=== PATIENT | male | born 1965 | race Caucasian/White ===

== ENCOUNTER → 2019-09-13 | Outpatient (CLI) | payer OTHER ==
--- NOTE | 2019-09-13 16:01 | DIREP ---
PROCEDURE:MR SHOULDER WITHOUT CONTRAST [Left] TECHNIQUE:Multi-planar MR images of the left shoulder were obtained without contrast. COMPARISON:[facility] and Sp[facility] CT, MR, MRI UPPER EXTREMITY LEFT JOINT W/O, 11/18/2012, 10:30 AM. INDICATIONS:LEFT SHOULDER PAIN FINDINGS: ROTATOR CUFF:Complete supraspinatus tendon tear/retear with evidence of previous rotator cuff repair, compared to prior, tendon has completely torn. Infraspinatus partially torn with full-thickness tear anteriorly and tendinosis of posterior fibers. Teres minor tendon intact. Moderate grade partial-thickness and full-thickness tearing of the superior 3rd of the subscapularis tendon insertion on the lesser trochanter. BICEPS TENDON:Biceps tendon appears completely torn along its intracapsular course with split tear and fraying of biceps tendon along the bicipital groove. MUSCLES:Severe subscapularis muscle atrophy. Moderate supraspinatus and subscapularis muscle atrophy. LIGAMENTS:Superior and middle glenohumeral ligaments not well assessed without arthrographic contrast. Inferior glenohumeral ligament appears intact. LABRUM:Labrum circumferentially macerated and chronically torn. AC JOINT:AC joint maintained. GLENOHUMERAL JT:Moderate glenohumeral chondral thinning and full-thickness fissuring. Moderate glenohumeral joint effusion with synovitis. ACROMION:Type 2 acromion, no os acromiale. Acromiohumeral interval narrowed at 2 mm with superior drift of the humeral head abutting the undersurface of the acromion. BONES:Irregularity of the humeral head articular surface superiorly with areas of subchondral irregularity, abnormal signal and collapse consistent with avascular necrosis. Multiple suture anchor seen in the greater tuberosity consistent with previous rotator cuff repair. OTHER:Small joint effusion. Synovitis. CONCLUSION: 1. Complete supraspinatus tendon tear/retear which has developed since prior. 2. Partial-thickness infraspinatus tendon tear, new since prior. 3. Focal full-thickness superior subscapularis tendon tear, new since prior. 4. Intracapsular biceps tendon disruption, new since prior. 5. Humeral head avascular necrosis, new since prior. Dictated by: Alvarado Steven M.D. on 09/13/2019 at 03:48 PM
== END | disposition home or self-care (01) ==
LOC: RAD 12:56
PROVIDERS: ATTEND Orthopaedic Surgery
DX: S46.912A Strain of unspecified muscle, fascia and tendon at shoulder and upper arm level, left arm, initial encounter (principal); X58.XXXA Exposure to other specified factors, initial encounter; Y93.89 Activity, other specified; Y92.89 Other specified places as the place of occurrence of the external cause; Y99.8 Other external cause status
CPT/HCPCS: 73221

== ENCOUNTER → 2020-12-05 | Outpatient (CLI) | payer OTHER ==
[~2020-12-05] MED LIST: LEXISCAN IV ONE
--- NOTE | 2020-12-05 20:16 | PCM.ECHO ---
APPROVED REPORT EXAM: Comprehensive 2D, Doppler, and color-flow Echocardiogram. Patient Location: OUT-PATIENT Rhythm: NSR Indications Chest Pain 2D Dimensions LVOT Diameter 2.39 (1.8-2.4cm) LVEF(%) 54.18 (>50%) M-Mode Dimensions RVDd 1.70 (2.1-3.2cm) Left Atrium(MM) 4.95 (2.5-4.0cm) IVSd 1.55 (0.7-1.1cm) Aortic Root 2.65 (2.2-3.7cm) LVDd 4.65 (4.0-5.6cm) Aortic Cusp Exc 2.00 (1.5-2.0cm) PWd 1.40 (0.7-1.1cm) MV EPSS 0.52 (<0.5cm) IVSs 2.00 cm FS (%) 29.90 % LVDs 3.25 (2.0-3.8cm) ESV(Teich) 42.88 ml PWs 1.60 cm LVEF(%) 57.10 (>50%) Volumes Biplane 2D LV Volumes Biplane 2D LA Volumes LVEDv A4C 201.07 mL LA ESV Index LVESv A4C 92.13 mL Aortic Valve AoV Peak Reggie. 1.45 m/s AoV VTI 29.85 cm AO Peak GR. 8.60 mmHg AO Mean GR. 4.30 mmHg LVOT VTI 29.57 cm LVOT Peak Reggie. 1.22 m/s GENE(VTI)/BSA 4.45 cm2/m2 GENE (VTI) 4.45 cm2 Mitral Valve MV E Velocity 1.00m/s MR Peak Gr. 83.75mmHg MV A Velocity 1.10m/s TDI Lateral E' P. V 0.11m/s Medial E' P. V 0.07m/s Pulmonary Valve PV Peak Velocity 0.85m/s PV Peak Grad. 3.15mmHg RVOT VTI 18.59cm Tricuspid Valve TR P. Velocity 1.25m/s RAP ESTIMATE 10.00mmHg TR Peak Gr. 6.52mmHg RVSP 16.52mmHg LEFT VENTRICLE The left ventricle is normal size. The left ventricular systolic function is normal. The left ventricular ejection fraction is within the normal range. There is normal left ventricular wall thickness. There is normal LV segmental wall motion. There is no ventricular septal defect visualized. No left ventricle thrombus noted on this study. LVEF is 50-55%. RIGHT VENTRICLE The right ventricle is normal size. The right ventricular systolic function is normal. There is normal right ventricular wall thickness. ATRIA The left atrium size is normal. The right atrium size is normal. The interatrial septum is intact with no evidence for an atrial septal defect. AORTIC VALVE The aortic valve is normal in structure. There is no aortic valvular stenosis. No aortic regurgitation is present. MITRAL VALVE The mitral valve is normal in structure. There is no mitral valve stenosis. Mild to moderate mitral regurgitation. There is no evidence of mitral valve vegetations. TRICUSPID VALVE The tricuspid valve is normal in structure. There is no tricuspid valve stenosis. Moderate tricuspid regurgitation. There is no tricuspid valve vegetations. PULMONIC VALVE Pulmonic valve is not well visualized. There is no pulmonic valvular stenosis. There is no pulmonic valvular regurgitation. GREAT VESSELS The aortic root is normal in size. Pulmonary artery is not well visualized. Aortic arch is not well visualized. The IVC is normal in size and collapses >50% with inspiration. PERICARDIUM There is no pericardial effusion. Other Information Study Quality: Fair <Conclusion> The left ventricular systolic function is normal. LVEF is 50-55%. Mild to moderate mitral regurgitation. Moderate tricuspid regurgitation. Electronically signed by : JAMESON ROD. 12/05/2020 20:16:22
--- NOTE | 2020-12-05 22:15 | STRESS ---
DATE OF SERVICE: 12/05/2020 DICTATOR NAME: JAMESON BRUNAFeliberto CARDIAC STRESS TEST INDICATION: Chest pain. FINDINGS: Baseline EKG shows normal sinus rhythm with premature atrial complexes and couplets. Poor R-wave progression is also visualized. Stress EKG goes shows normal sinus rhythm, unchanged from baseline. At the end of recovery, EKG shows normal sinus rhythm, unchanged from baseline. Baseline heart rate 73 beats per minute and gurdeep to 74 beats per minute during stress. At the end of recovery, the heart rate was 82 beats per minute. Baseline blood pressure is 141/87 and remained the same during stress. At the end of recovery, the blood pressure was 144/88. Blood pressure and heart rate were appropriate for stress. There were no significant symptoms noted during stress. There were no arrhythmias noted during stress. EKG portion of stress test is negative for myocardial ischemia. Nuclear images were obtained with a rest dose of 10.62 mCi technetium-99 sestamibi, and a stress dose of 34.5 mCi technetium 99 sestamibi. Nuclear imaging shows a large area of reversible perfusion defect involving the inferior wall and suggestive of myocardial ischemia. There is also a moderate sized reversible perfusion defect involving the apical wall also suggestive of myocardial ischemia. There is no evidence of myocardial infarction. Left ventricular ejection fraction of 42%. EDV is 108 mL, ESV 63 mL. The left ventricle is moderately dilated. Severe inferior wall hypokinesis is visualized on voltage gated images. Global hypokinesis of the left ventricle is also visualized on voltage gated images. TID is 1.4. There is no evidence of diaphragmatic attenuation artifact. IMPRESSION: 1. There is a large size reversible perfusion defect involving the inferior wall and suggestive of myocardial ischemia. 2. There is a moderate sized reversible perfusion defect involving the apical wall also suggestive of myocardial ischemia. 3. There is no evidence of myocardial infarction. 4. Left ventricular ejection fraction of 42%. 5. Moderately dilated left ventricle. 6. Global hypokinesis of the left ventricle. 7. This is an abnormal study, recommend left heart catheterization. Meggan GUZMÁN D.O. DR: MATT TID: [id number] RECEIPT: [id number]
== END | disposition home or self-care (01) ==
LOC: RAD 10:37
PROVIDERS: ATTEND Internal Medicine Interventional Cardiology
DX: I08.1 Rheumatic disorders of both mitral and tricuspid valves (principal); R00.2 Palpitations; R07.9 Chest pain, unspecified; Q25.49 Other congenital malformations of aorta
CPT/HCPCS: 78452; 93017; 93306; A9500; J2785

== ENCOUNTER → 2020-12-19 | Day surgery (SDC) | payer OTHER ==
[~2020-12-19] VITALS: Ht 177.8 cm; Wt 95.3 kg
[2020-12-19] VITALS (10 sets, daily range): BP systolic 145–162; BP diastolic 73–96
[~2020-12-19] MED LIST changes: +ALEN70TA76 PO; +AMLO2.5T5 PO; +ARFO15VI NEB; +BUDE0.5A NEB; +CETI10TA18 PO; +CLON0.1T PO; +CYCL10TA2 PO; +DOXA2TAB2 PO; +EZET10TA20 PO; +FURO40TA4 PO; +GABA600T7 PO; +HYDR-3105 PO; +LEVA15HF4 IH; -LEXISCAN IV ONE; +METO25TA4 PO; +NS 1000ML 1,000 ML IV ONE; +PANT40TA6 PO; +POLY2500 PO; +PRED20TA PO; +ROFL500T PO; +ROPI0.5T4 PO; +ROSU20TA2 PO; +SUBLIMAZE ONE; +THEO300C PO; +TRAM50TA PO; +TRAZ-163 PO; +VERSED ONE; +XYLOCAINE ONE
--- NOTE | 2020-12-19 20:30 | [facility] ---
DATE OF SERVICE: 12/19/2020 DICTATOR NAME: JAMESON ROD DO INDICATIONS: Abnormal cardiac stress test. This is a 55-year-old male who was initially seen in the outpatient setting following chest discomfort. He underwent cardiac ischemic workup, which was noted to be abnormal. He was then set up for left heart catheterization after informed consents were obtained. PROCEDURES PERFORMED: 1. Selective coronary angiography. 2. Left ventriculography. 3. Hemostasis established using a 6-Georgian Mynx control. DESCRIPTION OF PROCEDURE: Access was obtained, using a 4 Georgian micropuncture kit to cannulate the right common femoral artery. The 4-Georgian sheath was then upsized to a 6-Georgian regular short sheath. Diagnostic angiography was carried out using the Stephen left catheter to engage the left main. The left main was noted to be angiographically normal. It trifurcates into left anterior descending artery, left circumflex artery and the ramus intermedius branch. The LAD is noted to have mild luminal irregularities. It runs in the interventricular groove reaching the apex to form a type 2 LAD. It gives off a large caliber diagonal branch that is noted to have mild luminal irregularities. The left circumflex artery is noted to be nondominant and with mild luminal irregularities. It gives off a large caliber obtuse marginal 1 branch that is noted to have mild luminal irregularities. The ramus intermedius branch is a large caliber vessel with mild luminal irregularities. The Stephen left catheter was then exchanged for a Stehpen right catheter, which was used to cross the aortic valve into the left ventricle. Left ventriculography was performed. LVEF was noted to be 60%. LVEDP was noted to be 12. Upon pullback of the Stephen right catheter, there was no gradient across the aortic valve. The Stephen right catheter was then used to engage the RCA. The RCA was noted to be dominant and with mild luminal irregularities. It bifurcates distally to an RPL and RPDA branch, both noted to have mild luminal irregularities. The Stephen right catheter was then taken out and hemostasis was established using a 6-Georgian Mynx control. The patient left the manager lab in stable condition. There were no complications. IMPRESSION: 1. Nonobstructive coronary artery disease. 2. Selective coronary angiography. 3. Left ventriculography. 4. LVEF of 60%. 5. LVEDP of 12. 6. Hemostasis established using a 6-Georgian Mynx control. RECOMMENDATIONS: No coronary intervention is necessary at this time. Lifestyle modification factors have been strongly advised. The patient will be discharged home today to follow up with me in the office in 2 to 3 weeks. Meggan GUZMÁN D.O. DR: KAMILLE TID: [id number] RECEIPT: [id number]
== END | disposition home or self-care (01) ==
LOC: CCL 11:46
PROVIDERS: ATTEND Internal Medicine Interventional Cardiology
DX: I25.10 Atherosclerotic heart disease of native coronary artery without angina pectoris (principal); I11.0 Hypertensive heart disease with heart failure; I50.40 Unspecified combined systolic (congestive) and diastolic (congestive) heart failure; E78.2 Mixed hyperlipidemia; J44.9 Chronic obstructive pulmonary disease, unspecified; K21.9 Gastro-esophageal reflux disease without esophagitis; F41.9 Anxiety disorder, unspecified; E66.9 Obesity, unspecified; Z68.30 Body mass index [BMI] 30.0-30.9, adult; Z98.890 Other specified postprocedural states; Z79.899 Other long term (current) drug therapy
CPT/HCPCS: 93458; 99152; C1769; C1894 ×2; J1644; J2250; J3010; Q9967

== ENCOUNTER 2020-12-22 10:35 | Emergency (ER) | payer OTHER ==
[~2020-12-22] VITALS: Ht 177.8 cm; Wt 104.3 kg
[~2020-12-22 10:35] MED LIST changes: -NS 1000ML 1,000 ML IV ONE; -SUBLIMAZE ONE; -VERSED ONE; -XYLOCAINE ONE
[2020-12-22 10:43] VITALS: BP 137/88
[2020-12-22] MEDS ORDERED: TORADOL IM STA (10:45)
[2020-12-22] MEDS ORDERED: NORFLEX IM STA (10:45)
--- NOTE | 2020-12-22 10:47 | ER.PDOC ---
General Chief Complaint: Extremities Stated Complaint: HIP PAIN Time seen by MD: 10:46 Source: patient Exam Limitations: no limitations History of Present Illness Initial Comments Right hip pain for 1 week. Patient denies injury. Pain is worse with movement. Nothing makes it better. Timing/Duration: week (one) Quality: moderate, constant, sharp Method of Injury/Prior Injury: unknown Location: hip (R) Symptoms prior to fall: denies symptoms Other Injuries: none Allergies: Coded Allergies: No Known Allergies (Unverified , 12/16/20) Past Medical History Medical History: COPD Family History Significant Family History: no pertinent family hx Social History Smoking: greater than 1 pack/day Alcohol Use: none Drug Use: none Review of Systems Constitutional: no symptoms reported EENTM: no symptoms reported Respiratory: no symptoms reported Cardiovascular: no symptoms reported Gastrointestinal: no symptoms reported Musculoskeletal: see HPI All Other Systems: Reviewed and Negative Physical Exam General Appearance: No Apparent Distress, WD/WN EENT: eyes nml inspection, nml ENT inspection, pharynx nml Neck: nml inspection, non-tender Cardiovascular/Respiratory: Regular Rate, Rhythm, No M/R/G, Normal Peripheral Pulses, No JVD, Normal Breath Sounds, No Respiratory Distress Abdominal: Non-Tender, No Organomegaly, No Hernia Back: Normal Inspection, No CVA Tenderness Extremities: Pain With Movement (right hip), Tenderness Neuro/Psych: Alert, first breaker 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 nml/symmetrical, mood/effect nml, No Motor/Sensory Deficits, Relexes nml Skin: Normal Color, Warm/Dry Results/Orders Results/Orders Orders - ORIANA LEWIS MD Xr Hip Rt 2v W/Pelvis (12/22/20 10:42) Ketorolac Tromethamine (Toradol) (12/22/20 10:45) Orphenadrine Citrate (Norflex) (12/22/20 10:45) Ketorolac Tromethamine (Toradol) (12/22/20 10:52) Orphenadrine Citrate (Norflex) (12/22/20 10:52) Ct Pelvis Wo Iv Contrast (12/22/20 11:23) Vital Signs Date Time Temp Pulse Resp B/P (MAP) Pulse Ox O2 Delivery O2 Flow Rate FiO2 12/22/20 10:50 98.5 84 20 137/82 (100) 91 Room Air 12/22/20 10:43 98.5 84 20 91 12/22/20 10:43 98.5 84 20 Administered Medications Medications (Trade) Dose Ordered Sig/Lashonda Route PRN Reason Start Time Stop Time Status Last Admin Dose Admin Ketorolac Tromethamine (Toradol) 60 mg STAT STAT IM 12/22/20 10:45 12/22/20 10:46 DC 12/22/20 11:03 60 MG Orphenadrine Citrate (Norflex) 60 mg STAT STAT IM 12/22/20 10:45 12/22/20 10:46 DC 12/22/20 11:[address] pelvis: Bilateral femoral head AVN without collapse. Degenerative changes lumbosacral junction. CT pelvis: Bilateral femoral head AVN without collapse. Degenerative changes lumbosacral junction. Spoke with Dr. Mtz will give patient option of either being admitted for pain control or go home and follow-up with me in the office tomorrow. He decided the latter. ER DEPARTURE Departure Time of Disposition: 12:39 Disposition: 01 HOME / SELF CARE / HOMELESS Impression: Primary Impression: Hip pain, right Additional Impression: Avascular necrosis of bone of right hip Condition: Stable Referrals: MELLISA POOL (PCP) PRIMARY CARE PROVIDER Additional Instructions: Tramadol Prednisone Use crutches and no weightbearing with the right leg Follow-up with Dr. Mtz tomorrow, call for appointment time Return to ED if worsening or concerns Duration or Time Spent with Pa: 20 min Justification of Admit/Observ Is this patient coming directl: Yes *Level of Care/Services Provid: ER Admit Criteria Met: NO Justification Content JUSTIFICATION FOR ADMISSION Instructions 1. Open link in [employer] Browser. [email or web address] 2. Copy and paste data needed to meet the Admit Criteria. 3. Modify and document the needful data to meet the Admit Criteria. Problem Qualifiers ORIANA LEWIS MD December 22, 2020 10:47
[2020-12-22 10:50] VITALS: BP 137/82
[2020-12-22] MEDS ORDERED: NORFLEX ONE (10:52)
[2020-12-22] MEDS ORDERED: TORADOL ONE (10:52)
--- NOTE | 2020-12-22 11:19 | DIREP ---
PROCEDURE:XRAY HIP MIN 2VW-RT COMPARISON:None. INDICATIONS:pain FINDINGS: BONES:Faint region of sclerosis and lucency superior aspect of the right femoral head without cortical collapse or acute changes. No acute deformities are seen. Possible subcortical cyst or osteonecrosis. If the patient has dedicated right hip pain additional evaluation with MRI or CT can be obtained. The remainder the osseous structures appear normal. JOINTS:Normal. SOFT TISSUES:Normal. OTHER:No additional findings. CONCLUSION: 1. Faint rounded region of sclerosis with central lucency in the superior aspect of the right femoral head without cortical collapse or acute changes. Possible subcortical cyst or osteonecrosis/AVN. If additional clinical evaluation is warranted CT or MRI may provide better characterization. Dictated by: Buster Jasso MD on 12/22/2020 at 11:13 AM
[2020-12-22 11:45] VITALS: BP 150/88
--- NOTE | 2020-12-22 12:14 | DIREP ---
PROCEDURE:CT PELVIS W/O COMPARISON:None. INDICATIONS:Right hip pain TECHNIQUE:Axial images were created through the pelvis without intravenous contrast material. No oral contrast was administered. Sagittal and coronal reconstructions were performed from source images. FINDINGS: AORTA/VASCULAR:Excessive calcified atherosclerosis. RETROPERITONEUM:Normal. No mass or adenopathy. BOWEL/MESENTERY:Diverticulosis of the descending colon and sigmoid colon without acute diverticulitis. ABDOMINAL WALL:Normal. No mass or hernia. PELVIC ORGANS:Normal. No visible mass. Pelvic organs appropriate for patient age. BONES:Geographic areas of abnormal density in the subarticular bilateral femoral heads consistent with avascular necrosis, without collapse or subchondral fracture. This involves approximately 75% of the right femoral head and slightly less on the left. Small bilateral acetabular osteophytes. Endplate degenerative changes L5-S1. OTHER:Negative. CONCLUSION:Bilateral femoral head AVN without collapse. Degenerative changes lumbosacral junction. Dictated by: Armando Morris M.D. on 12/22/2020 at 12:07 PM
[2020-12-22 12:45] VITALS: BP 128/85
== END 2020-12-22 12:45 ==
LOC: ER 10:35
DX: M25.551 Pain in right hip (principal); M87.9 Osteonecrosis, unspecified; F17.210 Nicotine dependence, cigarettes, uncomplicated; J44.9 Chronic obstructive pulmonary disease, unspecified; Z79.1 Long term (current) use of non-steroidal anti-inflammatories (NSAID)
CPT/HCPCS: 72192; 73502; 96372; 99284; J1885; J2360

== ENCOUNTER → 2021-01-10 | Outpatient (CLI) | payer OTHER ==
--- NOTE | 2021-01-10 16:59 | DIREP ---
PROCEDURE: MRI JOINT LOWER EXTREMITY-BILAT W/O COMPARISON:[facility], CT, CT PELVIS W/O, 12/22/2020, 11:27 AM. [facility], CR, XRAY HIP MIN 2VW-RT, 12/22/2020, 10:45 AM. TECHNIQUE:Multiplanar, multisequence images of the pelvis and bilateral hips were obtained without IV contrast. INDICATIONS:RIGHT AND LEFT HIP PAIN M87.051 M87.052 FINDINGS: BONES/JOINTS:Serpiginous increased T2/STIR and decreased T1 signal is seen within the anterior/superior aspects of the bilateral femoral heads (right greater than left), consistent with avascular necrosis. Minimal subchondral collapse is seen involving the anterior/superior right femoral head.Associated mild edema is seen within the anterior aspect of the right femoral neck. No subchondral collapse is seen involving the left femoral head. Marrow signal is otherwise normal. No fracture, contusion, or suspicious marrow lesion. Small right and trace left hip effusions. No intra-articular loose body. Mild bilateral hip osteoarthritis. Mild degenerative changes are partially visualized involving the inferior sacroiliac joints. Lower lumbar degenerative changes are incompletely visualized on coronal images. SOFT TISSUES:Minimal edema overlying the lateral aspects of the bilateral greater trochanters, consistent with minimal trochanteric bursitis/gluteal tendinopathy. Visualized musculature and soft tissues are otherwise unremarkable. OTHER:Moderate sigmoid diverticulosis. No inflammatory changes or fluid are seen to suggest diverticulitis. The prostate normal in size. Intrapelvic structures are otherwise unremarkable. No pelvic free fluid or adenopathy. Incidental note is made of small bilateral hydroceles. CONCLUSION: 1. Findings consistent with bilateral femoral head avascular necrosis, right greater than left. There is minimal subchondral collapse involving the anterior/superior with mild associated marrow edema in the anterior right femoral neck. 2. Small right and trace left hip effusions. 3. 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 4. Additional findings, as above Dictated by: Tuan Conde MD on 01/10/2021 at 04:41 PM
== END | disposition home or self-care (01) ==
LOC: RAD 12:07
PROVIDERS: ATTEND Orthopaedic Surgery
DX: M16.0 Bilateral primary osteoarthritis of hip (principal); K57.30 Diverticulosis of large intestine without perforation or abscess without bleeding; N43.2 Other hydrocele; M25.452 Effusion, left hip; M25.451 Effusion, right hip; M53.3 Sacrococcygeal disorders, not elsewhere classified
CPT/HCPCS: 73721

== ENCOUNTER → 2021-09-01 | Outpatient (CLI) | payer OTHER ==
[~2021-09-01] MED LIST changes: +CYCL10TA19 PO; -CYCL10TA2 PO; +LEXISCAN IV ONE
--- NOTE | 2021-09-02 03:05 | STRESS ---
DATE OF SERVICE: 09/01/2021 DICTATOR NAME: JAMESON MARCEL CARDIAC STRESS TEST INDICATION: Chest pain. FINDINGS: Baseline EKG shows normal sinus rhythm with nonspecific ST-T wave changes. Stress EKG shows normal sinus rhythm, unchanged from baseline. At the end of recovery, EKG shows normal sinus rhythm, unchanged from baseline. Baseline blood pressure is 143/77 and remained the same during stress. At the end of recovery, the blood pressure was 149/78. Baseline heart rate was 75 beats per minute and gurdeep to 76 beats per minute during stress. At the end of recovery, the heart rate was 82 beats per minute. Blood pressure and heart rate were appropriate for stress. There were no significant symptoms noted during stress. There were no arrhythmias noted during stress. EKG portion of stress test is negative for myocardial ischemia. Nuclear images were obtained with a rest dose of 10.80 mCi technetium-99 sestamibi, and a stress dose of 32.5 mCi technetium 99 sestamibi. Nuclear images reveal a large area of periinfarct ischemia involving the inferior wall. Left ventricular ejection fraction is 58%. EDV is 102 mL, ESV is 43 mL. The left ventricle is normal in size. Gated motion images show normal wall motion across all segments of the left ventricle. TID is 1.47. There was no evidence of diaphragmatic attenuation artifact. IMPRESSION: 1. There is a large area of periinfarct ischemia involving the inferior wall. 2. This is an abnormal study. Recommend left heart catheterization. Meggan GUZMÁN D.O. DR: RUSSELL TID: [id number] RECEIPT: [id number]
== END | disposition home or self-care (01) ==
LOC: RAD 10:41
PROVIDERS: ATTEND Internal Medicine Interventional Cardiology
DX: R07.9 Chest pain, unspecified (principal)
CPT/HCPCS: 78452; 93017; A9500; J2785

== ENCOUNTER → 2021-09-17 | Day surgery (SDC) | payer OTHER ==
[~2021-09-17] VITALS: Ht 177.8 cm; Wt 103.0 kg
[2021-09-17] VITALS (10 sets, daily range): BP systolic 139–178; BP diastolic 66–89
[~2021-09-17] MED LIST changes: +ACET500T73 PO; +ALBU1.25 NEB; +ASPI-667 PO; +AZIT250T14 PO; +BUDE10.7 IH; +CYAN-26 PO; +GABA100C7 PO; +GUAI600T31 PO; +IPRA0.2S34 NEB; +IPRA4AER IH; -LEXISCAN IV ONE; +MORPHINE SULFATE ONE; +NS 1000ML 1,000 ML IV SCH; +NS 1000ML 1,000 ML ONE; +POTA-148 PO; +SUBLIMAZE ONE; +UMEC62.5 IH; +VERSED ONE; +VITA25006 PO; +XYLOCAINE ONE
--- NOTE | 2021-09-17 21:36 | [facility] ---
DATE OF SERVICE: 09/17/2021 DICTATOR NAME: JAMESON ROD DO INDICATIONS: Abnormal cardiac ischemic workup. This is a 56-year-old male who was seen in the outpatient setting where he underwent cardiac ischemic workup that was noted to be abnormal. He was then set up for left heart catheterization after informed consent were obtained, PROCEDURES PERFORMED: 1. Selective coronary angiography. 2. Left ventriculography. 3. Hemostasis established using a 6-New Zealander Angio-Seal. DESCRIPTION OF PROCEDURE: Access was obtained using a 4-[place] Zealander micropuncture kit to cannulate the right common femoral artery. The 4-[place] Zealander sheath was then upsized to a 6-[place] Zealander regular short sheath. Diagnostic angiography was then carried out using the Stephen left catheter to engage the left main. The left main was noted to be angiographically normal. It trifurcates into left anterior descending artery, ramus intermedius branch and the left circumflex artery. The left anterior descending artery has a widely patent stent in the proximal segment. It runs in the interventricular groove to the apex to form a type 2 LAD. It tapers into a 0.5-1 mm vessel distally. It gives rise to a large caliber diagonal branch that is noted to have mild luminal irregularities. The left circumflex artery is noted to be nondominant with mild luminal irregularities. The ramus intermedius branch is a large caliber vessel with mild luminal irregularities. The Stephen left catheter was then exchanged for a Stephen right catheter, which was used to engage the RCA. RCA angiography revealed a dominant RCA with mild luminal irregularities. The RCA bifurcates distally to a right posterior descending artery and a right posterolateral artery. Both vessels are noted to have mild luminal irregularities. The Stephen right catheter was then exchanged for a pigtail catheter, which was used to cross the aortic valve into the left ventricle. Left ventriculography was performed. LVEF was noted to be 65%. LVEDP was noted to be 11. Upon pullback of the pigtail catheter, there was no gradient across the aortic valve. The pigtail catheter was then taken out and hemostasis was established using a 6-[place] Zealander Angio-Seal. 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 There were no complications. IMPRESSION: 1. Nonobstructive coronary artery disease. 2. Selective coronary angiography. 3. Left ventriculography. 4. Left ventricular ejection fraction of 65%. 5. Left ventricular end-diastolic pressure of 11. 6. Hemostasis established using a 6-[place] Zealander Angio-Seal. RECOMMENDATIONS: No coronary intervention is necessary at this time. Lifestyle modification factors have been strongly advised. The patient will be discharged home today to follow up with me in the office in 2-3 weeks. Meggan GUZMÁN D.O. DR: KA/AZI TID: [id number] RECEIPT: [id number]
== END | disposition home or self-care (01) ==
LOC: CCL 07:13
PROVIDERS: ATTEND Internal Medicine Interventional Cardiology
DX: I25.10 Atherosclerotic heart disease of native coronary artery without angina pectoris (principal); I11.0 Hypertensive heart disease with heart failure; J44.9 Chronic obstructive pulmonary disease, unspecified; I50.40 Unspecified combined systolic (congestive) and diastolic (congestive) heart failure; M54.9 Dorsalgia, unspecified; E78.2 Mixed hyperlipidemia; K21.9 Gastro-esophageal reflux disease without esophagitis; F41.9 Anxiety disorder, unspecified; G60.9 Hereditary and idiopathic neuropathy, unspecified; Z95.5 Presence of coronary angioplasty implant and graft; Z79.01 Long term (current) use of anticoagulants; Z79.899 Other long term (current) drug therapy
CPT/HCPCS: 93458; 99152; C1769; C1894 ×2; J1644; J2250; J2270; J3010; J7030; Q9967

== ENCOUNTER → 2021-12-15 | Outpatient (CLI) | payer OTHER ==
[~2021-12-15] MED LIST changes: -MORPHINE SULFATE ONE; -NS 1000ML 1,000 ML IV SCH; -NS 1000ML 1,000 ML ONE; -SUBLIMAZE ONE; -VERSED ONE; -XYLOCAINE ONE
--- NOTE | 2021-12-16 16:18 | PRP ---
DATE OF PROCEDURE: 12/15/2021 DICTATOR NAME: JAMESON ROD DO ARTERIAL DOPPLER ULTRASOUND OF THE BILATERAL LOWER EXTREMITIES INDICATION: Intermittent claudication. RIGHT LOWER EXTREMITY: The right common femoral artery has a peak systolic velocity of 245 cm per second with triphasic waveforms visualized. The right profunda femoris artery has a peak systolic velocity of 198 cm per second with biphasic waveforms seen. The right superficial femoral artery has a peak systolic velocity of cm per second with triphasic waveforms seen. The right popliteal artery has a peak systolic velocity of 119 cm per second with triphasic waveforms visualized. The right posterior tibial artery has a peak systolic velocity of 105 cm per second with monophasic waveforms visualized. The right peroneal artery has a peak systolic velocity of 142 cm per second with triphasic waveforms seen. The right anterior tibial artery has triphasic waveforms with a peak systolic velocity of 95 cm per second. The right lower extremity ankle-brachial index is 1.0. LEFT LOWER EXTREMITY: The left common femoral artery has a peak systolic velocity of 161 cm per second with triphasic waveforms seen. The left profunda femoris artery has a peak systolic velocity of 116.8 cm per second with biphasic waveforms seen. The left superficial femoral artery has triphasic waveforms with a peak systolic velocity of 110 cm per second. The left popliteal artery has triphasic waveforms with a peak systolic velocity of 103 cm per second. The left posterior tibial artery has triphasic waveforms with a peak systolic velocity of 121.6 cm per second. Left peroneal artery has triphasic waveforms with a peak systolic velocity of 104 cm per second. The left anterior tibial artery has triphasic waveforms with a peak systolic velocity of 80 cm per second. The left lower extremity ankle-brachial index is 0.9. IMPRESSION: 1. There is no evidence of hemodynamically significant stenosis in the right lower extremity. 2. There is no evidence of hemodynamically significant stenosis in the left lower extremity. 3. Bilateral ABIs are within normal limits. Meggan GUZMÁN D.O. DR: JUANITO STOVER: [id number] RECEIPT: [id number] [facility]
== END | disposition home or self-care (01) ==
LOC: RAD 12:41
PROVIDERS: ATTEND Nurse Practitioner Family
DX: I70.213 Atherosclerosis of native arteries of extremities with intermittent claudication, bilateral legs (principal)
CPT/HCPCS: 93922; 93925

== ENCOUNTER → 2021-12-25 | Outpatient (CLI) | payer OTHER ==
--- NOTE | 2021-12-28 04:38 | PRP ---
DATE OF PROCEDURE: 12/25/2021 DICTATOR NAME: JAMESON ROD DO VENOUS MAPPING ULTRASOUND INDICATION: Chronic venous insufficiency. Right lower extremity: The right greater saphenous vein measures 10 mm in its maximum diameter. Significant reflux is noted in the right GSV with maximum reflux of 0.6 seconds. The right small saphenous vein measures 3 mm in its maximum diameter. Significant reflux is noted in the right small saphenous vein with maximum reflux of 0.5 seconds. There is no evidence of deep venous thrombosis in the right lower extremity. Left lower extremity: The left greater saphenous vein measures 12 mm in its maximum diameter. Significant reflux is noted in the left GSV with maximum reflux of 0.5 seconds. The left small saphenous vein measures 4 mm in its maximum diameter. Significant reflux is noted in the left small saphenous vein with maximum reflux of 0.5 seconds. There is no evidence of DVT in the left lower extremity. IMPRESSION: 1. The right greater saphenous vein is severely dilated and displays pathological reflux. 2. The right small saphenous vein is normal sized, but displays pathological reflux. 3. The left greater saphenous vein is severely dilated and displays pathological reflux. 4. The left small saphenous vein is dilated and displays pathological reflux. 5. There is no evidence of deep venous thrombosis in the bilateral lower extremities. RECOMMENDATIONS: Conservative measures including the use of compression stockings, leg elevation and exercise are recommended if clinically indicated. Meggan GUZMÁN D.O. DR: KA/RIS TID: [id number] RECEIPT: [id number]
== END | disposition home or self-care (01) ==
LOC: RAD 12:08
PROVIDERS: ATTEND Internal Medicine Interventional Cardiology
DX: I87.2 Venous insufficiency (chronic) (peripheral) (principal)
CPT/HCPCS: 93970

== ENCOUNTER → 2022-03-12 | Outpatient (CLI) | payer OTHER ==
--- NOTE | 2022-03-12 23:48 | PRP ---
DATE OF PROCEDURE: 03/12/2022 DICTATOR NAME: JAMESON ROD DO POST VENOUS ABLATION DOPPLER ULTRASOUND INDICATION: Status post Varithena ablation of the right greater saphenous vein. FINDINGS: There is no evidence of deep venous thrombosis in the right lower extremity. The right greater saphenous vein is noncompressible. Hyperechoic material is visualized in the right greater saphenous vein. There is no evidence of venous flow in the right greater saphenous vein. IMPRESSION: 1. Successful Varithena ablation of the right greater saphenous vein. 2. There is no evidence of deep venous thrombosis in the right lower extremity. Meggan GUZMÁN D.O. DR: CELINA TID: [id number] RECEIPT: [id number]
== END | disposition home or self-care (01) ==
LOC: RAD 10:14
PROVIDERS: ATTEND Internal Medicine Interventional Cardiology
DX: I87.2 Venous insufficiency (chronic) (peripheral) (principal)
CPT/HCPCS: 93971

== ENCOUNTER → 2022-03-19 | Outpatient (CLI) | payer OTHER ==
--- NOTE | 2022-03-20 19:25 | PRP ---
DATE OF PROCEDURE: 03/19/2022 DICTATOR NAME: JAMESON ROD DO POST VENOUS ABLATION DOPPLER ULTRASOUND INDICATION: Status post Varithena ablation of the left greater saphenous vein. FINDINGS: There is no evidence of deep venous thrombosis in the left lower extremity. The left greater saphenous vein is noncompressible. Hyperechoic material is visualized in the left greater saphenous vein. There is no evidence of venous flow in the left greater saphenous vein. IMPRESSION: 1. Successful Varithena ablation of the left greater saphenous vein. 2. There is no evidence of deep venous thrombosis in the left lower extremity. Meggan GUZMÁN D.O. DR: MANDO TID: [id number] RECEIPT: [id number]
== END | disposition home or self-care (01) ==
LOC: RAD 10:29
PROVIDERS: ATTEND Internal Medicine Interventional Cardiology
DX: I87.2 Venous insufficiency (chronic) (peripheral) (principal)
CPT/HCPCS: 93971

== ENCOUNTER → 2022-03-26 | Outpatient (CLI) | payer OTHER ==
--- NOTE | 2022-03-27 00:31 | PRP ---
DATE OF PROCEDURE: 03/26/2022 DICTATOR NAME: JAMESON ROD DO POST VENOUS ABLATION DOPPLER ULTRASOUND INDICATION: Status post Varithena ablation of the right small saphenous vein. FINDINGS: There is no evidence of deep venous thrombosis in the right lower extremity. The right small saphenous vein is noncompressible. Hyperechoic material is visualized in the right small saphenous vein. There is no evidence of venous flow in the right small saphenous vein. IMPRESSION: 1. Successful Varithena ablation of the right small saphenous vein. 2. There is no evidence of deep venous thrombosis in the right lower extremity. Meggan GUZMÁN D.O. DR: KA/PUN TID: [id number] RECEIPT: [id number]
== END | disposition home or self-care (01) ==
LOC: RAD 09:48
PROVIDERS: ATTEND Internal Medicine Interventional Cardiology
DX: I87.2 Venous insufficiency (chronic) (peripheral) (principal)
CPT/HCPCS: 93971

== ENCOUNTER → 2022-04-02 | Outpatient (CLI) | payer OTHER ==
--- NOTE | 2022-04-03 01:40 | PRP ---
DATE OF PROCEDURE: 04/02/2022 DICTATOR NAME: JAMESON ROD DO POST VENOUS ABLATION DOPPLER ULTRASOUND INDICATION: Status post Varithena ablation of the left small saphenous vein. FINDINGS: There is no evidence of deep venous thrombosis in the left lower extremity. The left small saphenous vein is noncompressible. Hyperechoic material is visualized in the left small saphenous vein. There is no evidence of venous flow in the left small saphenous vein. IMPRESSION: 1. Successful Varithena ablation of the left small saphenous vein. 2. There is no evidence of deep venous thrombosis in the left lower extremity. Meggan GUZMÁN D.O. DR: BATSHEVA TID: [id number] RECEIPT: [id number]
== END | disposition home or self-care (01) ==
LOC: RAD 14:35
PROVIDERS: ATTEND Internal Medicine Interventional Cardiology
DX: I87.2 Venous insufficiency (chronic) (peripheral) (principal)
CPT/HCPCS: 93971